=== PATIENT | female | born 1960 | race Caucasian/White ===

== ENCOUNTER 2021-07-12 08:42 | Day surgery (SDC) | payer MEDICARE ==
--- NOTE | 2021-07-11 08:09 | PCM.PREANE ---
Preanesthetic Assessment - Procedure Proposed Procedure: Screening Colonoscopy - Anesthesia/Transfusion/Family Hx Anesthesia History: Prior Anesthesia Without Reaction Family History of Anesthesia Reaction: No Transfusion History: No Prior Transfusion(s) Intubation History: Unknown - Review of Systems General: No Symptoms (Mental Retardation) Pulmonary: No Symptoms (ETOH: occasionally) Cardiovascular: No Symptoms (HTN) Gastrointestinal: No Symptoms (History of GERD-controlled) Neurological: No Symptoms (History of back pain) Other: Reports: Liver Problems (Elevated liver enzymes) - Physical Assessment NPO Status Date: 07/11/21 NPO Status Time: 21:00 Vital Signs: HR: 88 Sat: 100% Temp: 98.1 B/P: 162/84 Resp: 16 Height: 1.65 m Weight: 52 kg ASA Class: 2 Mental Status: Alert & Oriented x3 Airway Class: Mallampati = 2 Dentition: Reports: Normal Dentition, Caries Thyro-Mental Finger Breadths: 3 Mouth Opening Finger Breadths: 3 ROM/Head Extension: Full Lungs: Clear to Auscultation, Normal Respiratory Effort Cardiovascular: Regular Rate, Regular Rhythm, No Murmurs - Lab Values: All labs reviewed and noted and within acceptable ranges to proceed with scheduled procedure. - Allergies Allergies/Adverse Reactions: Allergies Allergy/AdvReac Type Severity Reaction Status Date / Time No Known Drug Allergies Allergy Other Verified 05/30/15 09:16 nuts Allergy Not listed Uncoded 07/11/21 13:44 - Anesthesia Plan Pre-Op Medication Ordered: None - Acknowledgements Anesthesia Type Planned: MAC Pt an Appropriate Candidate for the Planned Anesthesia: Yes Alternatives and Risks of Anesthesia Discussed w Pt/Guardian: Yes Pt/Guardian Understands and Agrees with Anesthesia Plan: Yes PreAnesthesia Questionnaire Other OB/BYN History: Lichen sclerosus, cervical stenosis, and atrophic vag initis - HOME MEDS Home Medications: Home Meds Calcium/Magnesium/Zinc [Calcium & Magnesium plus Zinc] 1 tab PO TID 05/29/15 [History] Cholecalciferol (Vitamin D3) [Vitamin D3] 1 cap PO DAILY 05/29/15 [History] Clobetasol [Clobetasol Propionate 0.05% Cream] 1 dose TOP ASDIRECTED 05/29/15 [History] FA/Lycopene/Lut/MV,Ca,Iron,Min [Centrum] 1 tab PO DAILY 05/29/15 [History] Lisinopril 10 mg PO DAILY 05/29/15 [History] [place]-3S/DHA/Epa/Fish Oil [Fish Oil EC 1,200 mg Softgel] 1 cap PO DAILY 05/29/15 [History] Ubidecarenone [Co Q-10] 1 cap PO DAILY 05/29/15 [History] Zinc 1 tab PO DAILY 05/29/15 [History] betaine HCL [Betaine] 2 cap PO BID 05/29/15 [History] miSOPROStoL [Misoprostol] 1 tab PO ASDIRECTED 05/29/15 [History] Acetaminophen [Tylenol] 325 mg PO Q6H PRN #50 tab 05/30/15 [Rx] Ibuprofen [Motrin] 200 mg PO Q6H #50 tablet 05/30/15 [Rx] - CURRENT (IN HOUSE) MEDS Current Meds: Current Medications Lactated Ringer's (Ringers, Lactated) 1,000 mls @ 125 mls/hr IV ASDIRECTED MAHESH Stop: 07/12/21 23:00 Lidocaine/Sodium Bicarbonate (Lidocaine 1%/Sod Bicarbonate In Ns 8.4% 1 Ml Syri nge) 0.25 ml IDERM ONETIME PRN PRN Reason: Prior to IV Start Stop: 07/12/21 18:00 Sodium Chloride (Sodium Chloride 0.9% 10 Ml Syringe) 10 ml FLUSH ASDIRECTED PRN PRN Reason: Keep Vein Open Stop: 07/12/21 18:00
[~2021-07-12 08:42] MED LIST: Lactated Ringers 1,000 ML IV SCH; Lidocaine 1% 4 ML ONE; Lidocaine 1%/Sod Bicarbonate in NS 8.4% 1 ML Syringe IDERM PRN; Midazolam 1 MG/ML 2 ML SDV ONE; Propofol 200 MG/20 ML SDV ONE; Sodium Chloride 0.9% 10 ML Syringe FLUSH PRN; fentaNYL 100 MCG/2 ML SDV ONE
[2021-07-12] MEDS ORDERED: Lactated Ringers 1,000 ML ONE (10:01)
[2021-07-12] MEDS ORDERED: Propofol 200 MG/20 ML SDV ONE (10:14)
--- NOTE | 2021-07-12 10:40 | PCM.PRNOTE ---
- Free Text/Narrative Note: Date: 07/12/2021 Procedure: screening colonoscopy History: normal screening 10 years ago, father was diagnosed with colon cancer Endoscopist: Danilo Phillips MD Findings: Excellent prep. Redundant colon, cavernous cecum. Terminal ileum was intubated. No polyps were identified. Detailed Report: Patient was taken to the endoscopy suite and placed in left lateral decubitus position. Timeout was performed and monitored anesthesia care was initiated. On inspection of the anus there appeared to be small external hemorrhoidal skin tags. Digital rectal exam was unremarkable. The colonoscope was inserted and advanced all the way to the cecum. This was somewhat challenging due to redundancy of the colon. The cecum was quite cavernous. The impression of the appendiceal orifice was noted; patient had history of prior appendectomy. The ileocecal valve was visualized and the terminal ileum was intubated. Small bowel mucosa appeared normal. The scope was slowly withdrawn and mucosal surfaces carefully inspected. Prep was excellent. No polyps were identified. There were very few very small diverticula noted in the sigmoid colon. No other pathology was appreciated. No significant hemorrhoidal disease was appreciated after retroflexing the scope within the rectum. Air was suctioned from the d istal colon and rectum prior to withdrawal of the scope. The patient tolerated the procedure well.
--- NOTE | 2021-07-12 10:47 | PCM48HPAN ---
Post Anesthesia Note - EVALUATION WITHIN 48HRS OF ANESTHETIC Vital Signs in Normal Range: Yes Patient Participated in Evaluation: Yes Respiratory Function Stable: Yes Airway Patent: Yes Cardiovascular Function Stable: Yes Hydration Status Stable: Yes Pain Control Satisfactory: Yes Nausea and Vomiting Control Satisfactory: Yes Mental Status Recovered: Yes Vital Signs: Last Vital Signs Temp 98.1 F 07/12/21 08:50 Pulse 88 07/12/21 08:50 Resp 16 07/12/21 08:50 BP 162/86 H 07/12/21 08:50 Pulse Ox 98 07/12/21 08:50 1043 125/84 100% 66 12 97.0
[2021-07-12 10:57] VITALS: BP 125/84; PULSE 66
== END 2021-07-12 11:49 | disposition home or self-care (01) ==
LOC: JD.SDS 08:42
PROVIDERS: ATTEND Surgery
DX: Z12.11 Encounter for screening for malignant neoplasm of colon (principal); K57.30 Diverticulosis of large intestine without perforation or abscess without bleeding; I10 Essential (primary) hypertension; Z91.018 Allergy to other foods; Z80.0 Family history of malignant neoplasm of digestive organs; Z79.899 Other long term (current) drug therapy; Z90.49 Acquired absence of other specified parts of digestive tract; Z98.890 Other specified postprocedural states
CPT/HCPCS: 00812; J2250; J2704; J3010; J7120